=== PATIENT | female | born 1980 | race Native Hawaiian/Other Pacific Islander ===

== ENCOUNTER → 2017-05-30 | Emergency (ER) | payer OTHER ==
[~2017-05-30] MED LIST: BACITRACIN 0.9 GM PACKET ONE; BACITRACIN 15 GM TUBE TOPICAL OINTMENT TP ONE; CEPHALEXIN MONOHYDRATE 250 MG CAPSULE (FP) ONE; CEPHALEXIN MONOHYDRATE 500 MG CAPSULE (UD) PO ONE; ONDANSETRON 4 MG/2 ML VIAL IVPUSH ONE; ONDANSETRON 4 MG/2 ML VIAL ONE; SODIUM CHLORIDE 1,000 ML IV STA; TETANUS AND DIPHTHERIA TOXOID 0.5 ML DISP.SYRIN IM ONE; morphine CARPU-JECT 10 MG/1 ML DISP.SYRIN IVPUSH ONE; morphine CARPU-JECT 4 MG/1 ML DISP.SYRIN IVPUSH ONE; morphine CARPU-JECT 4 MG/1 ML DISP.SYRIN ONE
--- NOTE | 2017-05-30 23:11 | PDOC ---
History of Present Illness - General Stated Complaint: BURN Time Seen by Provider: 05/30/17 22:42 History Source: Patient Exam Limitations: No Limitations - History of Present Illness Initial Comments: 05/30/17 23:02 36yo Female patient with no significant past medical history presents to ED c/o burn to abdomen and breasts. Patient states she boiled some water and was moving it to another counter, when she bumped in her refrigerator and burned herself. Patient reports tetanus not up to date. She denies any other complaints at this time. Timing/Duration: reports: just prior to arrival Severity: Yes: moderate Location: reports: torso Respiratory Risk Factors: denies: no cause identified, exposure to illness, exposure to allergen, foods, insect bite, insect sting, medications, pollen, soaps, other Modifying Factors: worse with: antihistamine, calamine lotion, prednisone, scratching, topical steriods, other Associated Symptoms: denies: denies symptoms, blisters, change in skin texture, edema, fever, flushing, headache, hives, jaundice, malaise, nasal congestion, numbness, pallor, paresthesia, petechiae, rash, sore throat, swelling/mass/lumps , tingling, other Past History - Travel Traveled outside of the country in the last 30 days: No Close contact w/someone who was outside of country & ill: No - Past Medical History Allergies/Adverse Reactions: Allergies Allergy/AdvReac Type Severity Reaction Status Date / Time No Known Allergies Allergy Verified 03/17/16 12:51 Home Medications: Ambulatory Orders Bacitracin 1 applic TP DAILY PRN #1 oint...g. 05/31/17 Cephalexin Monohydrate [Keflex -] 500 mg PO BID #28 capsule 05/31/17 Naproxen Sodium [Naproxen Sodium ER] 500 mg PO DAILY #20 tablet.er 05/31/17 Oxycodone HCl/Acetaminophen [Endocet 7.5-325 mg Tablet] 1 each PO Q4H PRN #18 tablet MDD 6 TABS 05/31/17 Suicide Attempt (Hx): No - Immunization History Immunization Up to Date: Yes - Psycho/Social/Smoking Cessation Hx Anxiety: No Suicidal Ideation: No Smoking History: Never smoked Have you smoked in the past 12 months: No Hx Alcohol Use: No Drug/Substance Use Hx: No Substance Use Type: None Review of Systems - Review of Systems Able to Perform ROS?: Yes Is the patient limited Citizen [place] proficient: No Constitutional: No: Chills, Fever Integumentary: Yes: Erythema, Other (Burn) All Other Systems: Reviewed and Negative *Physical Exam - Physical Exam General Appearance: Yes: Nourished, Appropriately Dressed, Apparent Distress, Moderate Distress. No: Mild Distress, Severe Distress Neck: positive: Trachea midline, Normal Thyroid, Supple. negative: Rigid, Stridor, Lymphadenopathy (R), Lymphadenopathy (L) Respiratory/Chest: positive: Lungs Clear, Normal Breath Sounds. negative: Chest Tender, Respiratory Distress, Accessory Muscle Use, Labored Respiration, Rapid RR, Rhonchi, Stridor, Wheezing Cardiovascular: positive: Regular Rhythm, Regular Rate Gastrointestinal/Abdominal: positive: Normal Bowel Sounds, Soft. negative: Distended, Guarding, Rebound, Tenderness, Hernia Musculoskeletal: positive: Normal Inspection. negative: CVA Tenderness Extremity: positive: Normal Capillary Refill, Normal Inspection, Normal Range of Motion. negative: Pedal Edema, Swelling, Calf Tenderness, Erythema, Inflammation Integumentary: positive: Normal Color, Dry, Warm, Erythema, Other (2nd degree burn to abdomen and medial aspects of both breast w/ small blisters to abd. 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 Patient Rx ABX and given phone number to burn clinic for follow up. *DC/Admit/Observation/Transfer Diagnosis at time of Disposition: Second degree burn of abdomen Qualifiers: Encounter type: initial encounter Qualified Code(s): T21.22XA - Burn of second degree of abdominal wall, initial encounter - Discharge Dispostion Disposition: HOME Condition at time of disposition: Improved Admit: No - Prescriptions Prescriptions: Bacitracin 1 applic TP DAILY PRN #1 oint...g. PRN Reason: Wound Care Oxycodone HCl/Acetaminophen [Endocet 7.5-325 mg Tablet] 1 each PO Q4H PRN #18 tablet MDD 6 TABS PRN Reason: Severe Pain Cephalexin Monohydrate [Keflex -] 500 mg PO BID #28 capsule Naproxen Sodium [Naproxen Sodium ER] 500 mg PO DAILY #20 tablet.er - Patient Instructions Printed Discharge Instructions: DI for [place] Additional Instructions: FOLLOW UP WITH [facility]. CALL TO SCHEDULE FOLLOW UP. [phone]. CALL THIS WEEK FOR FURTHER EVALUATION. APPLY BACITRACIN OINTMENT DAILY AND NEEDED FOR WOUND CARE. TAKE MEDICATIONS PRESCRIBED. RETURN IF ANY CONCERNS FOR FURTHER EVALUATION. DO NOT DRIVE, DRINK ALCOHOL, OR OPERATE HEAVY MACHINERY WHILE TAKING PERCOCET. Print Language: ARABIC - Post Discharge Activity Work/School Note: Back to Work
[2017-05-30 23:17] LABS: BASOPHIL 0.8 % (0-2.0); EOSINOPHIL 1.2 % (0-4.5); MCH 29.6 pg (25.7-33.7); MCHC 33.5 g/dl (32.0-36.0); MEAN CELL VOLUME 88.6 fl (80-96); MEAN PLT VOLUME 8.9 fl (7.5-11.1); NEUTROPHILS 55.2 % (42.8-82.8); PLATELET COUNT 279 K/MM3 (134-434); RDW 13.6 % (11.6-15.6); WHITE BLOOD COUNT 7.4 K/mm3 (4.0-10.0)
[2017-05-30 23:40] LABS: ALBUMIN 4.1 g/dl (3.4-5.0); ALK PHOS 89 U/L (45-117); ANION GAP 11 (8-16); BILIRUBIN,TOTAL 0.6 mg/dL (0.2-1.0); CO2 26 mmol/L (21-32); CREATININE 0.8 mg/dL (0.55-1.02); GLUCOSE,RANDOM 84 mg/dL (74-106); SGPT/ALT 25 U/L (12-78); TOT PROT 7.7 g/dl (6.4-8.2)
[2017-05-30 23:50] LABS: SGOT/AST 23 U/L (15-37)
[2017-05-31 00:01] VITALS: TEMP 98.4; BMI 25.7
[2017-05-31 01:25] VITALS: BP 122/94; PULSE 77
== END | disposition home or self-care (01) ==
LOC: JER 22:31
PROC: 2W23X4Z Dressing of Abdominal Wall using Bandage (ICD-10-PCS; principal; 2017-05-30)
PROC: 2W24X4Z Dressing of Chest Wall using Bandage (ICD-10-PCS; 2017-05-30)
PROC: 3E0234Z Introduction of Serum, Toxoid and Vaccine into Muscle, Percutaneous Approach (ICD-10-PCS; 2017-05-30)
PROC: 3E0337Z Introduction of Electrolytic and Water Balance Substance into Peripheral Vein, Percutaneous Approach (ICD-10-PCS; 2017-05-30)
PROC: 3E033NZ Introduction of Analgesics, Hypnotics, Sedatives into Peripheral Vein, Percutaneous Approach (ICD-10-PCS; 2017-05-30)
PROC: 3E033GC Introduction of Other Therapeutic Substance into Peripheral Vein, Percutaneous Approach (ICD-10-PCS; 2017-05-30)
DX: T21.22XA Burn of second degree of abdominal wall, initial encounter (principal); T21.21XA Burn of second degree of chest wall, initial encounter; X12.XXXA Contact with other hot fluids, initial encounter; Y93.G1 Activity, food preparation and clean up; Y92.030 Kitchen in apartment as the place of occurrence of the external cause
CPT/HCPCS: 16020; 36415; 80053; 85025; 90471; 90715; 96361; 96374; 96375; 99283-25

== ENCOUNTER 2019-01-09 08:08 | Emergency (ER) | payer OTHER ==
[2019-01-09 08:17] VITALS: BP 121/87; PULSE 74; TEMP 98.4; BMI 27.3
[2019-01-09] MEDS ORDERED: KETOROLAC TROMETHAMINE 60 MG/2 ML VIAL IM ONE (08:28)
[2019-01-09] MEDS ORDERED: KETOROLAC TROMETHAMINE 60 MG/2 ML VIAL ONE (08:47)
--- NOTE | 2019-01-09 09:36 | PDOC ---
History of Present Illness - General Chief Complaint: Headache Stated Complaint: HEADACHE Time Seen by Provider: 01/09/19 08:27 History Source: Patient Exam Limitations: No Limitations - History of Present Illness Initial Comments: 01/09/19 09:43 38-year-old female presents to ED with complaints of frontal throbbing headache unrelieved with Imitrex Patient states symptoms are similar to previous symptoms and denies fever, chills, neck pain, difficulty swelling, or visual changes. Patient states had an MRI done less than 2 months ago which showed no acute findings. Patient states headache was triggered by the wind yesterday. Timing/Duration: reports: constant Severity: Yes: mild Associated Symptoms: reports: other Past History - Travel Traveled outside of the country in the last 30 days: No Close contact w/someone who was outside of country & ill: No - Past Medical History Allergies/Adverse Reactions: Allergies Allergy/AdvReac Type Severity Reaction Status Date / Time No Known Allergies Allergy Verified 01/09/19 08:10 Home Medications: Ambulatory Orders Sumatriptan Succinate [Imitrex -] 50 mg PO DAILY 01/09/19 Anemia: No Asthma: No Cancer: No Cardiac Disorders: No CVA: No COPD: No DVT: No Dementia: No Diabetes: No Dialysis: No GI Disorders: No Disorders: No HTN: No Hypercholesterolemia: No Kidney Stones: No Liver Disease: No Psychiatric Problems: No Seizures: No Thyroid Disease: No Lung CA: No Other medical history: migraines - Immunization History Immunization Up to Date: Yes - Suicide/Smoking/Psychosocial Hx Smoking History: Never smoked Have you smoked in the past 12 months: No Information on smoking cessation initiated: No Hx Alcohol Use: No Drug/Substance Use Hx: No Substance Use Type: None Patient Lives Alone: No Lives with/in: spouse/SO Neuro Specific PMHX - Complaint Specific PMHX Migraine: Yes Review of Systems - Review of Systems Able to Perform ROS?: No Constitutional: No: Symptoms Reported HEENTM: No: Symptoms Reported Respiratory: No: Symptoms reported Cardiac (ROS): No: Symptoms Reported ABD/GI: No: Symptoms Reported : No: Symptoms Reported Musculoskeletal: No: Symptoms Reported Integumentary: No: Symptoms Reported Neurological: Yes: Headache. No: Numbness, Tingling, Dizziness Endocrine: No: Symptoms Reported Hematologic/Lymphatic: No: Symptoms Reported *Physical Exam - Vital Signs Last Vital Signs Temp Pulse Resp BP Pulse Ox 98.4 F 74 18 121/87 99 01/09/19 08:12 01/09/19 08:12 01/09/19 08:12 01/09/19 08:12 01/09/19 08:12 - Physical Exam General Appearance: Yes: Nourished, Appropriately Dressed. No: Apparent Distress HEENT: positive: EOMI, ANNALISA, Pharynx Normal. negative: Pale Conjunctivae Neck: positive: Supple. negative: Decreased range of motion Respiratory/Chest: positive: Lungs Clear, Normal Breath Sounds. negative: Respiratory Distress, Accessory Muscle Use Cardiovascular: positive: Regular Rhythm, Regular Rate. negative: Murmur Gastrointestinal/Abdominal: positive: Soft. negative: Tenderness Integumentary: positive: Normal Color, Warm, Moist Neurologic: positive: Normal Mood/Affect, Motor Strength 5/5 (ambulatory) Moderate Sedation - Procedure Monitoring Vital Signs: Procedure Monitoring Vital Signs Temperature 98.4 F 01/09/19 08:12 Pulse Rate 74 01/09/19 08:12 Respiratory Rate 18 01/09/19 08:12 Blood Pressure 121/87 01/09/19 08:12 O2 Sat by Pulse Oximetry (%) 99 01/09/19 08:12 ED Treatment Course - Medications Given in the ED: ED Medications Discontinued Medications Generic Name Dose Route Start Last Admin Trade Name Cameronq PRN Reason Stop Dose Admin Ketorolac Tromethamine 60 mg 01/09/19 08:28 01/09/19 08:57 Toradol Injection - IM 01/09/19 08:29 60 mg ONCE ONE Administration Medical Decision Making - Medical Decision Making 01/09/19 08:45 CC: Frontal headache since yesterday unrelieved by excedrin migraine. Pt did not take immetrex as prescribed by Dr. Burch Exam: no neuro findings Plan: MRI 11/26 with new sig findings. Toradol IM 01/09/19 09:48 Pt sates has resolved. Will discharge home *DC/Admit/Observation/Transfer Diagnosis at time of Disposition: Headache - Discharge Dispostion Disposition: HOME Condition at time of disposition: Improved - Referrals Referrals: Oumar Hood MD [Primary Care Provider] - - Patient Instructions Printed Discharge Instructions: DI for Hormonal and Tension Headaches Additional Instructions: Please Take your medication as prescribed Follow up with your neurologist - Post Discharge Activity Forms/Work/School Notes: Back to Work
== END 2019-01-09 09:56 | disposition home or self-care (01) ==
LOC: JER 08:08
PROC: 3E0233Z Introduction of Anti-inflammatory into Muscle, Percutaneous Approach (ICD-10-PCS; principal; 2019-01-09)
DX: R51 Headache (principal); Z86.69 Personal history of other diseases of the nervous system and sense organs
CPT/HCPCS: 96372; 99281-25

== ENCOUNTER 2021-11-24 16:19 | Emergency (ER) | payer OTHER ==
[2021-11-24 17:14] VITALS: BP 131/86; PULSE 95; TEMP 100.8; BMI 29.9
== END 2021-11-24 18:36 | disposition home or self-care (01) ==
LOC: JER 16:19
DX: B34.9 Viral infection, unspecified (principal)
CPT/HCPCS: 99283-25

== ENCOUNTER 2022-03-11 14:57 | Emergency (ER) | payer OTHER ==
[2022-03-11 15:09] VITALS: BP 126/80; PULSE 94; TEMP 97.8; BMI 29.7
[2022-03-11 17:36] LABS: BASO % 1.1 % (0-2.0); EOS % 0.7 % (0-4.5); EPI CELLS 32 /uL (0-25.1); HEMATOCRIT 39.3 % (32.4-45.2); HEMOGLOBIN 13.3 GM/dL (10.7-15.3); HYALINE CASTS 1 /uL (0-3.1); LYMPH % 28.9 % (8-40); MCH 29.8 pg (25.7-33.7); MCHC 33.8 g/dl (32.0-36.0); MEAN CELL VOLUME 88.1 fl (80-96); MEAN PLT VOLUME 8.2 fl (7.5-11.1); MONO % 7.8 % (3.8-10.2); NEUT % 61.5 % (42.8-82.8); PH,URINE 6.5 (5.0-8.0); PLATELET COUNT 327 10^3/uL (134-434); RBC 4.46 M/mm3 (3.60-5.2); RDW 13.9 % (11.6-15.6); URINE APPEARANCE CLEAR; URINE BACTERIA 534 /uL (0-1359); URINE BILIRUBIN NEGATIVE (NEGATIVE); URINE COLOR YELLOW; URINE GLUCOSE (UA) NEGATIVE (NEGATIVE); URINE KETONE NEGATIVE (NEGATIVE); URINE LEUK ESTERASE TRACE (NEGATIVE); URINE NITRITE NEGATIVE (NEGATIVE); URINE PROTEIN TRACE (NEGATIVE); URINE RBC 45 /uL (0-23.9); URINE WBC 50 /uL (0-25.8); WHITE BLOOD COUNT 6.4 K/mm3 (4.0-10.0)
[2022-03-11 17:54] LABS: ALBUMIN 3.5 g/dl (3.4-5.0); BLOOD UREA NITROGEN 5.8 mg/dL (7-18)
[2022-03-11 17:57] LABS: CREATININE 0.7 mg/dL (0.55-1.3)
[2022-03-11 17:58] LABS: BILIRUBIN,TOTAL 0.5 mg/dL (0.2-1); TOT PROT 7.6 g/dl (6.4-8.2)
[2022-03-11] MEDS ORDERED: ACETAMINOPHEN 500 MG TABLET (FP) PO ONE (18:27)
[2022-03-11] MEDS ORDERED: ACETAMINOPHEN 325 MG TABLET (FP) ONE (18:41)
[2022-03-11] MEDS ORDERED: NITROFURANTOIN MACROCRYSTAL 50 MG CAPSULE (FP) PO SCH (19:45)
[2022-03-11] MEDS ORDERED: NITROFURANTOIN MACROCRYSTAL 50 MG CAPSULE (FP) ONE (20:18)
== END 2022-03-11 21:39 | disposition home or self-care (01) ==
LOC: JER 14:57
DX: O20.0 Threatened abortion (principal); Z3A.10 10 weeks gestation of pregnancy
CPT/HCPCS: 36415; 76817-TC; 80053; 81003; 84702; 84703; 85025; 86850; 86900; 86901; 87086; 99284-25

== ENCOUNTER 2022-08-11 22:23 | Emergency (ER) | payer OTHER ==
[2022-08-11 22:32] VITALS: RESP 20; BMI 29.9
[2022-08-11] MEDS ORDERED: ACETAMINOPHEN 500 MG TABLET (FP) PO ONE (22:52)
[2022-08-11] MEDS ORDERED: ACETAMINOPHEN 500 MG TABLET (FP) ONE (23:04)
[2022-08-12] VITALS: BP 128/83; PULSE 91; TEMP 100.1
== END 2022-08-12 00:27 | disposition home or self-care (01) ==
LOC: JER 22:23 → JERFT 22:23 → JER 08-12 00:27
DX: H10.32 Unspecified acute conjunctivitis, left eye (principal); J06.9 Acute upper respiratory infection, unspecified
CPT/HCPCS: 0241U-QW; 99283-25

== ENCOUNTER 2023-06-13 02:18 | Day surgery (SDC) | payer OTHER ==
[2023-06-13 02:26] VITALS: BMI 30.9
[2023-06-13] MEDS ORDERED: FAMOTIDINE 20 MG/50 ML IVPB 20 MG/50 ML MG IVPB ONE ×2 (02:51→03:08)
[2023-06-13] MEDS ORDERED: ACETAMINOPHEN 1000 MG/100 ML BAG IVPB ONE (02:51)
[2023-06-13] MEDS ORDERED: SIMETHICONE 80 MG TAB.CHEW (FP) PO ONE (02:52)
[2023-06-13 03:01] LABS: URINE APPEARANCE CLEAR; URINE BILIRUBIN NEGATIVE (NEGATIVE); URINE COLOR YELLOW; URINE GLUCOSE (UA) NEGATIVE (NEGATIVE); URINE KETONE NEGATIVE (NEGATIVE); URINE LEUK ESTERASE NEGATIVE (NEGATIVE); URINE NITRITE NEGATIVE (NEGATIVE); URINE PROTEIN NEGATIVE (NEGATIVE); URINE UROBILINOGEN 0.2 mg/dL (0.2-1.0)
[2023-06-13] MEDS ORDERED: SIMETHICONE 80 MG TAB.CHEW (FP) ONE (03:01)
[2023-06-13] MEDS ORDERED: ACETAMINOPHEN INJECTION 100 ML IVPB ONE ×2 (03:01→11:14)
[2023-06-13 03:04] LABS: HCG,QUALITATIVE URINE Negative
[2023-06-13 03:44] LABS: POTASSIUM 4.5 mmol/L (3.5-5.1)
[2023-06-13 03:46] LABS: ALBUMIN 3.5 g/dl (3.4-5.0); BLOOD UREA NITROGEN 9.7 mg/dL (7-18); CALCIUM 8.7 mg/dL (8.5-10.1)
[2023-06-13 03:49] LABS: CREATININE 0.9 mg/dL (0.55-1.3)
[2023-06-13 03:51] LABS: BILIRUBIN,TOTAL 0.2 mg/dL (0.2-1); TOT PROT 7.4 g/dl (6.4-8.2)
[2023-06-13] MEDS ORDERED: LACTULOSE 20 GM/30 ML UDC (FOR ORAL USE ONLY) PO ONE (05:46)
[2023-06-13] MEDS ORDERED: LACTULOSE 20 GM/30 ML UDC (FOR ORAL USE ONLY) ONE (05:52)
[2023-06-13 05:55] LABS: BASO % 0.8 % (0-2.0); EOS % 1.1 % (0-4.5); HEMATOCRIT 39.8 % (32.4-45.2); HEMOGLOBIN 12.9 GM/dL (10.7-15.3); LYMPH % 30.2 % (8-40); MCH 28.6 pg (25.7-33.7); MCHC 32.5 g/dl (32.0-36.0); MEAN CELL VOLUME 88.1 fl (80-96); MEAN PLT VOLUME 9.4 fl (7.5-11.1); MONO % 7.8 % (3.8-10.2); NEUT % 60.1 % (42.8-82.8); PLATELET COUNT 383 10^3/uL (134-434); RBC 4.52 M/mm3 (3.60-5.2); RDW 13.5 % (11.6-15.6); WHITE BLOOD COUNT 8.1 K/mm3 (4.0-10.0)
[2023-06-13] MEDS ORDERED: CEFTRIAXONE 1,000 MG in DEXTROSE 5%-WATER - 50 ML IVPB ONE (09:24)
[2023-06-13] MEDS ORDERED: ACETAMINOPHEN 1000 MG/100 ML BAG IVPB PRN (09:53)
[2023-06-13] MEDS ORDERED: ONDANSETRON 4 MG/2 ML VIAL IVPUSH PRN ×3 (09:53→15:10)
[2023-06-13] MEDS ORDERED: CEFTRIAXONE 1 GM/50 ML BAG ONE (11:14)
[2023-06-13] MEDS ORDERED: MIDAZOLAM HCL 2 MG/2 ML SINGLE DOSE VIAL ONE (13:31)
[2023-06-13] MEDS ORDERED: ONDANSETRON 4 MG/2 ML VIAL ONE (14:07)
[2023-06-13] MEDS ORDERED: KETOROLAC TROMETHAMINE 30 MG/1 ML VIAL ONE (14:07)
[2023-06-13] MEDS ORDERED: LIDOCAINE HCL/PF 2% SDV 5ML VIAL ONE (14:07)
[2023-06-13] MEDS ORDERED: DEXAMETHASONE SOD PHOSPHATE 4 MG/1 ML VIAL ONE (14:07)
[2023-06-13] MEDS ORDERED: PHENYLEPHRINE HCL 10 MG/1 ML SINGLE DOSE VIAL ONE (14:08)
[2023-06-13] MEDS ORDERED: BUPIVACAINE HCL/PF 0.25% (2.5MG/ML) 10 ML VIAL IJ ONE (14:20)
[2023-06-13] MEDS ORDERED: NEOSTIGMINE METHYLSULFATE 0.5 MG/1 ML - 10 ML MDV ONE (14:34)
[2023-06-13] MEDS ORDERED: HYDROmorphone HCl 2 MG/ML VIAL ONE (14:41)
[2023-06-13] MEDS ORDERED: LACTATED RINGERS SOLUTION 1,000 ML IV SCH (15:15)
[2023-06-13] MEDS: ONDANSETRON 4 MG/2 ML VIAL IVPUSH PRN (19:06)
[2023-06-13] MEDS: IBUPROFEN 400 MG TABLET (FP) PO SCH ×2 (19:45→23:40)
[2023-06-13] MEDS: ACETAMINOPHEN 500 MG TABLET (FP) PO SCH (20:33)
[2023-06-14 02:37] VITALS: RESP 18
[2023-06-14] MEDS: IBUPROFEN 400 MG TABLET (FP) PO SCH ×6 (03:30→16:40)
[2023-06-14] MEDS: ACETAMINOPHEN 500 MG TABLET (FP) PO SCH ×2 (03:50→12:34)
[2023-06-14] MEDS: ONDANSETRON 4 MG/2 ML VIAL IVPUSH PRN (05:55)
[2023-06-14] MEDS ORDERED: SIMETHICONE 80 MG TAB.CHEW (FP) PO PRN (10:15)
[2023-06-14] MEDS ORDERED: DOCUSATE SODIUM 100 MG CAPSULE (FP) PO SCH (10:15)
[2023-06-14] MEDS ORDERED: POLYETHYLENE GLYCOL (HEALTHYLAX) 3350 17 GM PACKET PO SCH (10:15)
[2023-06-14 14:25] VITALS: BP 113/58; PULSE 83; TEMP 97.8
[2023-06-14] MEDS ORDERED: SENNOSIDES 8.8 MG/5 ML SYRUP PO SCH (22:00)
== END 2023-06-14 16:49 | disposition home or self-care (01) ==
LOC: JER 02:18 → UNDOADMIN 09:23 → JERBED 09:23 → JASUSAT 09:48 → SUATTDRO 09:48 → J5S 11:42 → JASUSAT 06-14 16:49
PROVIDERS: ATTEND Internal Medicine
PROC: 0DTJ4ZZ Resection of Appendix, Percutaneous Endoscopic Approach (ICD-10-PCS; principal; 2023-06-13 13:30)
DX: K35.80 Unspecified acute appendicitis (principal)
CPT/HCPCS: 0241U-QW; 36415; 74177-TC; 80053; 81003; 83690; 84703; 85025; 86850; 86900; 86901; 87086; 88304-TC; 94760; 99285-25; Q9967

== ENCOUNTER 2024-04-28 20:26 | Emergency (ER) | payer OTHER ==
[2024-04-28 20:29] VITALS: TEMP 99; BMI 28.6
[2024-04-28] MEDS ORDERED: ACETAMINOPHEN INJECTION 100 ML IVPB ONE (21:16)
[2024-04-28] MEDS: ACETAMINOPHEN 1000 MG/100 ML BAG IVPB ONE (21:29)
[2024-04-28] MEDS: LACTATED RINGERS SOLUTION 1000 ML INFUS.BAG IV ONE (21:35)
[2024-04-28 21:41] LABS: BASO % 1.1 % (0-2.0); EOS % 3.6 % (0-4.5); HEMATOCRIT 37.7 % (32.4-45.2); HEMOGLOBIN 12.8 GM/dL (10.7-15.3); LYMPH % 38.5 % (8-40); MCH 29.9 pg (25.7-33.7); MCHC 34.1 g/dl (32.0-36.0); MEAN CELL VOLUME 87.7 fl (80-96); MEAN PLT VOLUME 7.9 fl (7.5-11.1); MONO % 8.8 % (3.8-10.2); PLATELET COUNT 381 10^3/uL (134-434); RDW 13.9 % (11.6-15.6); WHITE BLOOD COUNT 6.2 K/mm3 (4.0-10.0)
[2024-04-28 21:43] LABS: URINE APPEARANCE CLOUDY; URINE BILIRUBIN NEGATIVE (NEGATIVE); URINE COLOR YELLOW; URINE GLUCOSE (UA) NEGATIVE (NEGATIVE); URINE KETONE TRACE (NEGATIVE); URINE LEUK ESTERASE NEGATIVE (NEGATIVE); URINE NITRITE NEGATIVE (NEGATIVE); URINE PROTEIN NEGATIVE (NEGATIVE)
[2024-04-28] MEDS ORDERED: MAGNESIUM CITRATE 300 ML BOTTLE ONE (21:46)
[2024-04-28 21:48] LABS: INR 0.96 (0.83-1.09); PROTHROMBIN TIME (PATIENT) 10.9 SEC (9.7-13.0)
[2024-04-28] MEDS: MAGNESIUM CITRATE 300 ML BOTTLE PO ONE (21:48)
[2024-04-28 21:57] LABS: POTASSIUM 3.9 mmol/L (3.5-5.1)
[2024-04-28 22:00] LABS: ALBUMIN 3.6 g/dl (3.4-5.0); BLOOD UREA NITROGEN 11.7 mg/dL (7-18); CALCIUM 8.9 mg/dL (8.5-10.1)
[2024-04-28 22:04] LABS: BILIRUBIN,TOTAL 0.4 mg/dL (0.2-1); CREATININE 0.9 mg/dL (0.55-1.3)
[2024-04-28 22:06] LABS: TOT PROT 7.2 g/dl (6.4-8.2)
[2024-04-29 01:26] VITALS: BP 134/92; PULSE 84; RESP 16
== END 2024-04-29 01:26 | disposition home or self-care (01) ==
LOC: JER 20:26
PROC: 3E033NZ Introduction of Analgesics, Hypnotics, Sedatives into Peripheral Vein, Percutaneous Approach (ICD-10-PCS; principal; 2024-04-28)
DX: N83.202 Unspecified ovarian cyst, left side (principal); D25.9 Leiomyoma of uterus, unspecified; K59.00 Constipation, unspecified; R10.31 Right lower quadrant pain; R10.2 Pelvic and perineal pain
CPT/HCPCS: 36415; 74018-TC-FY; 76830-TC; 80053; 81003; 84703; 85025; 85610; 86850; 86900; 86901; 87077; 87086; 99285-25; J0131